=== PATIENT | male | born 1970 | race Caucasian/White ===

== ENCOUNTER 2016-06-09 16:35 | Emergency (ER) | payer SELFPAY ==
[~2016-06-09] VITALS: Ht 177.8 cm; Wt 81.5 kg
[2016-06-09 16:39] VITALS: BP 148/72; PULSE 79; RESP 14; TEMP 97.6; O2SAT 98
[2016-06-09] MEDS ORDERED: AMOX875T PO (18:36)
[2016-06-09] MEDS ORDERED: ERYTOIN10 EACH EYE (18:36)
--- NOTE | 2016-06-09 18:36 | PD ---
HPI Chief Complaint: Foreign Body Time Seen by Provider: 18:29 Travel History International Travel<30 days: No Contact w/Intl Traveler<30days: No Traveled to known affect area: No History of Present Illness HPI Patient is a 45-year-old male who presents emergency department for an evaluation of bilateral eye redness. Patient states one week ago his right eye started with the redness, itchy, scratchy irritated feeling then it spread to the left eye. Patient initially thought that he had foreign material in it. He has been irrigating his eyes and using polymycin drops that his had.. He also reports nasal congestion, sinus pressure. He denies any fever or chills.'s report photophobia but denies any visual changes. PFSH Past Medical History Medical History: Denies Significant Hx Social History Alcohol Use: No Tobacco Use: Yes Substance Use: No Allergies-Medications (Allergen,Severity, Reaction): Coded Allergies: No Known Allergies (Unverified , 06/09/16) Reported Meds & Prescriptions Reported Meds & Active Scripts Active No Active Prescriptions or Reported Medications Review of Systems Except as stated in HPI: all other systems reviewed are Neg Eyes: Positive: Photophobia, Redness, Foreign Body Sensation, Tearing, No: Blurred Vision, Visual changes HENT: Positive: Rhinitis, Congestion, No: Headaches Physical Exam Narrative GENERAL: Well-nourished, well-developed patient. SKIN: Warm and dry. HEAD: Normocephalic. EYES: No scleral icterus. Mild injection bilaterally, mildly erythematous eyelids bilaterally. Extraocular movements are intact, pupils are equal, round , reactive. Fluorescein eye exam is negative for any abrasions, dendritic lesions, ulcerations. NECK: Supple, trachea midline. No JVD or lymphadenopathy. CARDIOVASCULAR: Regular rate and rhythm without murmurs, gallops, or rubs. RESPIRATORY: Breath sounds equal bilaterally. No accessory muscle use. GASTROINTESTINAL: Abdomen soft, non-tender, nondistended. MUSCULOSKELETAL: No cyanosis, or edema. BACK: Nontender without obvious deformity. No CVA tenderness. Data Data Last Documented VS Vital Signs Date Time Temp Pulse Resp B/P Pulse Ox O2 Delivery O2 Flow Rate FiO2 06/09/16 16:39 97.6 79 14 148/72 98 Room Air Orders Eye Irrigation (06/09/16 17:56) [facility] Medical Decision Making Medical Screen Exam Complete: Yes Emergency Medical Condition: Yes Interpretation(s) Vital Signs Date Time Temp Pulse Resp B/P Pulse Ox O2 Delivery O2 Flow Rate FiO2 06/09/16 16:39 97.6 79 14 148/72 98 Room Air Differential Diagnosis Conjunctivitis versus abrasion versus ulceration versus iritis versus other Narrative Course Patient is a 45-year-old male who presented to emergency for evaluation of bilateral eye redness. Symptoms started in the right eye but spread to the left eye. Patient also has accompanying upper respiratory symptoms. Fluorescein eye exam is negative, patient's visual acuity is 20/20 bilaterally. Physical examination appears most consistent with a conjunctivitis. Patient will be provided with a prescription for antibiotic eyedrops however with his upper respiratory symptoms this could be attributed to a viral conjunctivitis. Patient was encouraged to follow-up with ophthalmology and his primary doctor. He was encouraged to return to my department any new or worsening symptoms. Patient verbalized understanding of these instructions. Patient is stable for discharge. Diagnosis Primary Impression: Conjunctivitis of both eyes Qualified Code: H10.9 - Conjunctivitis of both eyes, unspecified conjunctivitis type Referrals: [employer] Patient Instructions: Conjunctivitis (ED), General Instructions Additional Instructions: Follow-up with your primary doctor Use medications as directed Continue with symptomatic management Return to emergency department for any new or worsening symptoms Med/Other Pt SpecificInfo: Prescription(s) given Scripts Amoxicillin 875 Mg [id number] Mg PO BID 10 Days Ref 0 Prov:Paloma Brand 06/09/16 Erythromycin Opth Oint 5 Mg/Gm Oint1 Applic EACH EYE QID #1 TUBE Ref 0 Prov:Paloma Brand 06/09/16 Disposition: 01 DISCHARGE HOME Condition: Stable Paloma Brand Jun 09, 2016 18:36
== END 2016-06-09 19:27 | disposition home or self-care (01) ==
LOC: NEPB 16:35
DX: H10.9 Unspecified conjunctivitis (principal)
CPT/HCPCS: 99283